=== PATIENT | male | born 1935 | race Caucasian/White ===

== ENCOUNTER 2018-03-13 12:12 | Outpatient (REF) | payer MEDICARE, BC, SELFPAY ==
[2018-03-13 20:58] LABS: HCT 47.6 % (40.0-50.0); HGB 14.8 g/dL (13.5-17.5); Mean Corp. HGB Concentration 31.1 g/dL (32.0-36.0); Mean Corpuscular Hemoglobin 29.2 pg (27.0-33.0); Mean Corpuscular Volume 94.1 fL (80-95); Mean Platelet Volume 12.8 fL (8.0-11.0); Platelet Count 105 x1000/uL (130-400); RBC 5.06 m/cumm (4.50-6.00); RBC Distribution Width 15.9 % (11.8-14.1); White Blood Cell Count 7.71 k/cumm (4.4-10.8)
[2018-03-13 21:21] LABS: Albumin 3.3 g/dL (3.4-5.0); Anion Gap 2.3 mmol/L (3-11); BUN 20 mg/dL (7-18); CO2 33.7 mmol/L (21.0-32.0); CREATININE 1.39 mg/dL (0.70-1.30); Calcium 8.5 mg/dL (8.5-10.1); Chloride 105 mmol/L (98-107); Estimated GFR 49.17 (mL/min/1.73m2); Glucose 110 mg/dL (70-100); Potassium 4.9 mmol/L (3.5-5.1); Sodium 141 mmol/L (136-145); TSH 2.57 uIU/mL (0.358-3.74)
[2018-03-13 21:44] LABS: PHOSPHORUS 2.6 mg/dL (2.6-4.7); Uric Acid 5.3 mg/dL (3.5-7.2)
== END 2018-03-13 12:32 ==
LOC: NCHCN 12:12
PROVIDERS: PCP Internal Medicine; Visit Provider Internal Medicine
DX: E04.1 Nontoxic single thyroid nodule (principal); M10.9 Gout, unspecified; D64.9 Anemia, unspecified; N18.3 Chronic kidney disease, stage 3 (moderate)
CPT/HCPCS: 80069; 85027; 84443; 84550

== ENCOUNTER 2018-03-13 13:32 | Outpatient (REF) | payer MEDICARE, BC, SELFPAY | END 2018-03-13 13:52 | LOC: NCHCN 13:32 | PROVIDERS: PCP Internal Medicine; Visit Provider Internal Medicine | DX: E04.1 Nontoxic single thyroid nodule (principal); M10.9 Gout, unspecified; D64.9 Anemia, unspecified; N18.3 Chronic kidney disease, stage 3 (moderate) ==

== ENCOUNTER 2018-12-07 14:05 | Outpatient (REF) | payer MEDICARE, BC, SELFPAY ==
[2018-12-07 19:31] LABS: HCT 48.6 % (40.0-50.0); HGB 15.6 g/dL (13.5-17.5); Mean Corp. HGB Concentration 32.1 g/dL (32.0-36.0); Mean Corpuscular Hemoglobin 30.7 pg (27.0-33.0); Mean Corpuscular Volume 95.7 fL (80-95); Mean Platelet Volume 12.5 fL (8.0-11.0); Platelet Count 124 x1000/uL (130-400); RBC 5.08 m/cumm (4.50-6.00); RBC Distribution Width 14.8 % (11.8-14.1); White Blood Cell Count 10.14 k/cumm (4.4-10.8)
[2018-12-07 19:54] LABS: Albumin 3.3 g/dL (3.4-5.0); Anion Gap 6.4 mmol/L (3-11); BUN 27 mg/dL (7-18); CO2 35.6 mmol/L (21.0-32.0); CREATININE 1.71 mg/dL (0.70-1.30); Calcium 9.3 mg/dL (8.5-10.1); Chloride 102 mmol/L (98-107); Estimated GFR 38.61 (mL/min/1.73m2); Glucose 151 mg/dL (70-100); PHOSPHORUS 3.3 mg/dL (2.6-4.7); Potassium 3.9 mmol/L (3.5-5.1); Sodium 144 mmol/L (136-145)
== END 2018-12-07 14:25 ==
LOC: NCHCN 14:05
PROVIDERS: PCP Internal Medicine; Visit Provider Internal Medicine
DX: I10 Essential (primary) hypertension (principal); N18.3 Chronic kidney disease, stage 3 (moderate); I47.2 Ventricular tachycardia; L72.3 Sebaceous cyst
CPT/HCPCS: 80069; 85027

== ENCOUNTER 2020-06-02 14:12 | Outpatient (REF) | payer MEDICARE, BC, SELFPAY ==
[2020-06-02 19:20] LABS: HCT 49.1 % (40.0-50.0); HGB 15.5 g/dL (13.5-17.5); MCH 30.5 pg (27.0-33.0); MCHC 31.6 % (32.0-36.0); MCV 96.5 fL (80-95); RBC 5.09 10^6/uL (4.36-5.78); RDW 14.2 % (11.8-14.1); RDW-SD 50.6 fL
[2020-06-02 19:26] LABS: Albumin 3.5 g/dL (3.4-5.0); Anion Gap 4.5 mmol/L (3-11); BUN 25 mg/dL (7-18); CO2 33.5 mmol/L (21.0-32.0); CREATININE 1.35 mg/dL (0.70-1.30); Calcium 8.7 mg/dL (8.5-10.1); Chloride 101 mmol/L (98-107); Glucose 125 mg/dL (74-106); PHOSPHORUS 3.2 mg/dL (2.6-4.7); Potassium 4.3 mmol/L (3.5-5.1); Sodium 139 mmol/L (136-145)
[2020-06-02 19:39] LABS: WBC 11.36 10^3/uL (4.4-10.8)
== END 2020-06-02 14:32 ==
LOC: NCHCN 14:12
PROVIDERS: PCP Internal Medicine; Visit Provider Internal Medicine
DX: D64.9 Anemia, unspecified (principal); N18.30 Chronic kidney disease, stage 3 unspecified
CPT/HCPCS: 80069; 85027

== ENCOUNTER 2021-05-30 14:17 | Outpatient (REF) | payer MEDICARE, BC, SELFPAY ==
[2021-05-30 17:17] LABS: HCT 51.6 % (40.0-50.0); HGB 15.9 g/dL (13.5-17.5); MCH 29.9 pg (27.0-33.0); MCHC 30.8 % (32.0-36.0); Platelet Count 109 10^3/uL (130-400); RBC 5.32 10^6/uL (4.36-5.78); RDW 14.3 % (11.8-14.1); RDW-SD 51.2 fL; WBC 10.77 10^3/uL (4.4-10.8)
[2021-05-30 17:33] LABS: Albumin 3.3 g/dL (3.4-5.0); Anion Gap 5.4 mmol/L (3-11); BUN 38 mg/dL (7-18); CO2 34.6 mmol/L (21.0-32.0); CREATININE 1.4 mg/dL (0.70-1.30); Calcium 8.4 mg/dL (8.5-10.1); Chloride 104 mmol/L (98-107); Glucose 143 mg/dL (74-106); PHOSPHORUS 3.1 mg/dL (2.6-4.7); Potassium 3.9 mmol/L (3.5-5.1); Sodium 144 mmol/L (136-145)
== END 2021-05-30 14:18 | disposition home or self-care (01) ==
LOC: NCHCN 14:17
PROVIDERS: PCP Internal Medicine; Visit Provider Internal Medicine
DX: N18.30 Chronic kidney disease, stage 3 unspecified (principal); D64.9 Anemia, unspecified; E66.9 Obesity, unspecified; M10.9 Gout, unspecified
CPT/HCPCS: 80069; 85027

== ENCOUNTER 2022-01-18 17:10 | Outpatient (REF) | payer MEDICARE, BC, SELFPAY ==
[2022-01-18 19:28] LABS: HCT 48.6 % (40.0-50.0); HGB 15.6 g/dL (13.5-17.5); MCHC 32.1 % (32.0-36.0); MCV 96 fL (80-95); MPV 12.9 fL (8.0-11.0); Platelet Count 119 10^3/uL (130-400); RBC 5.04 10^6/uL (4.36-5.78); RDW 14.2 % (11.8-14.1); RDW-SD 50.8 fL; WBC 11.69 10^3/uL (4.4-10.8)
[2022-01-18 19:30] LABS: Anion Gap 7.6 mmol/L (3-11); BUN 31 mg/dL (7-18); CO2 33.4 mmol/L (21.0-32.0); CREATININE 1.6 mg/dL (0.70-1.30); Calcium 9.3 mg/dL (8.5-10.1); Chloride 100 mmol/L (98-107); Estimated GFR 41.39 (mL/min/1.73m2); Glucose 110 mg/dL (74-106); Potassium 4.4 mmol/L (3.5-5.1); Sodium 141 mmol/L (136-145)
[2022-01-18 19:51] LABS: Bacteria Negative HPF (Negative); C & S Indicated? C&S Done As Ordered; Crystals Negative HPF (Negative); Epithelial Cells Negative HPF (Negative); Mucus Negative (Negative); RBC >50 HPF (0-2); WBC Negative HPF (0-5)
== END 2022-01-18 17:11 | disposition home or self-care (01) ==
LOC: NCHCN 17:10
PROVIDERS: PCP Internal Medicine; Visit Provider Physician Assistant
DX: R31.9 Hematuria, unspecified (principal)
CPT/HCPCS: 80048; 85027; 81015; 87086

== ENCOUNTER 2022-10-17 16:36 | Outpatient (REF) | payer MEDICARE, BC, SELFPAY ==
[2022-10-17 19:24] LABS: HCT 41.9 % (40.0-50.0); HGB 13.5 g/dL (13.5-17.5); MCH 29.9 pg (27.0-33.0); MCHC 32.2 % (32.0-36.0); MCV 93 fL (80-95); MPV 12.2 fL (8.0-11.0); Platelet Count 130 10^3/uL (130-400); RBC 4.52 10^6/uL (4.36-5.78); RDW 14.5 % (11.8-14.1); RDW-SD 49.3 fL; WBC 10.16 10^3/uL (4.4-10.8)
[2022-10-17 19:36] LABS: Anion Gap 4.2 mmol/L (3-11); BUN 33 mg/dL (7-18); CO2 33.8 mmol/L (21.0-32.0); CREATININE 1.5 mg/dL (0.70-1.30); Calcium 9.4 mg/dL (8.5-10.1); Chloride 105 mmol/L (98-107); Estimated GFR 45.62 (mL/min/1.73m2); Glucose 113 mg/dL (74-106); Potassium 4.2 mmol/L (3.5-5.1); Sodium 143 mmol/L (136-145)
== END 2022-10-17 16:37 | disposition home or self-care (01) ==
LOC: NCHCN 16:36
PROVIDERS: PCP Internal Medicine; Visit Provider Internal Medicine
DX: D64.9 Anemia, unspecified (principal); N18.30 Chronic kidney disease, stage 3 unspecified
CPT/HCPCS: 80048; 85027